=== PATIENT | male | born 1975 | race Caucasian/White ===

== ENCOUNTER → 2020-07-09 | Outpatient (CLI) | payer BC ==
[~2020-07-09] MED LIST: ATORVASTATIN CA40 MG PO; BAYER CHEWABLE81 MG PO; COREG3.125 MG PO; ENTRESTO 49 MG1 EACH PO; FLONASE 0.05% N16 GM; MEDROL DOSEPAK 24 MG PO; NITROSTAT 0.40.4 MG SL; PROTONIX 40 MG40 M1 PO; PROZAC40 MG PO; RANEXA1000 MG PO; ROPINIROLE HCL0.5 MG PO; SKELAXIN TAB 8800 MG PO; TESTOSTERONE; VITAMIN D21250 MCG PO
== END ==
LOC: ECHO 13:24
DX: I10 Essential (primary) hypertension (principal); I25.2 Old myocardial infarction
CPT/HCPCS: ECHO; 71046; 93306

== ENCOUNTER → 2020-07-14 | Outpatient (CLI) | payer BC ==
[2020-07-14 11:53] LABS: HEMOGLOBIN 14.7 gm/dl (14.0-17.5); RED BLOOD COUNT 4.23 M/UL (4.20-5.50); WHITE BLOOD COUNT 9.4 K/UL (4.5-11.0)
[2020-07-14 12:24] LABS: BUN/CREATININE RATIO 17 (0-10)
== END ==
LOC: OPSV2 11:00 → EDSTATUS 11:00 → OPSV2 11:15
PROVIDERS: Orthopaedic Surgery
DX: Z01.812 Encounter for preprocedural laboratory examination (principal); M51.16 Intervertebral disc disorders with radiculopathy, lumbar region; M47.26 Other spondylosis with radiculopathy, lumbar region
CPT/HCPCS: 36415; 80048; 85027; 87081; 87086; 93005

== ENCOUNTER → 2020-07-15 | Outpatient (CLI) | payer BC | LOC: KOH-I 09:22 | DX: M54.16 Radiculopathy, lumbar region (principal); M48.061 Spinal stenosis, lumbar region without neurogenic claudication; M51.36 Other intervertebral disc degeneration, lumbar region | CPT/HCPCS: 72131 ==

== ENCOUNTER → 2020-07-27 | Outpatient (CLI) | payer BC | LOC: LAB 13:25 | DX: M54.16 Radiculopathy, lumbar region (principal); M51.36 Other intervertebral disc degeneration, lumbar region | CPT/HCPCS: 36415; 85610; 85730; 86850; 86900; 86901 ==

== ENCOUNTER 2020-07-28 06:23 | Inpatient (IN) | payer BC ==
[~2020-07-28] VITALS: Ht 188 cm; Wt 104.3 kg
[~2020-07-28 06:23] MED LIST changes: -MEDROL DOSEPAK 24 MG PO
[2020-07-28 15:41] LABS: HEMOGLOBIN 14.3 gm/dl (14.0-17.5); RED BLOOD COUNT 4.16 M/UL (4.20-5.50); WHITE BLOOD COUNT 11.9 K/UL (4.5-11.0)
[2020-07-28 16:02] LABS: BUN/CREATININE RATIO 12 (0-10)
[2020-07-29 03:38] LABS: HEMOGLOBIN 12.9 gm/dl (14.0-17.5); RED BLOOD COUNT 3.79 M/UL (4.20-5.50); WHITE BLOOD COUNT 16.6 K/UL (4.5-11.0)
[2020-07-29 04:14] LABS: BUN/CREATININE RATIO 13 (0-10)
[2020-07-30 09:03] LABS: HEMOGLOBIN 13.3 gm/dl (14.0-17.5); RED BLOOD COUNT 3.93 M/UL (4.20-5.50)
[2020-07-30 09:07] LABS: BUN/CREATININE RATIO 13 (0-10)
[2020-07-30 09:09] LABS: WHITE BLOOD COUNT 11.5 K/UL (4.5-11.0)
--- NOTE | 2020-07-30 11:01 | NUR ---
RN REMOVED HEMOVAC PER ORDER BUT NOTED THAT IT WAS OPEN-ENDED. RN NOTIFIED DR. CINTRON AND NOTIFIED HIM OF FINDING. HE STATED THAT THIS WAS EXPECTED. RN VERBALIZED UNDERSTANDING AND WILL CONTINUE WITH DISCHARGE.
== END 2020-07-30 12:45 | disposition home or self-care (01) | DRG 460 ==
LOC: OR 06:23 → CCU 14:27 → OR 07-29 09:20 → CCU 07-29 09:20 → M/S 07-29 12:33
PROVIDERS: ADMIT Orthopaedic Surgery
PROC: 00NY0ZZ Release Lumbar Spinal Cord, Open Approach (ICD-10-PCS; 2020-07-28)
PROC: 0SG3071 Fusion of Lumbosacral Joint with Autologous Tissue Substitute, Posterior Approach, Posterior Column, Open Approach (ICD-10-PCS; 2020-07-28)
PROC: 01NB0ZZ Release Lumbar Nerve, Open Approach (ICD-10-PCS; 2020-07-28)
PROC: 01NR0ZZ Release Sacral Nerve, Open Approach (ICD-10-PCS; 2020-07-28)
PROC: 4A11X4G Monitoring of Peripheral Nervous Electrical Activity, Intraoperative, External Approach (ICD-10-PCS; 2020-07-28)
PROC: 0SG0071 Fusion of Lumbar Vertebral Joint with Autologous Tissue Substitute, Posterior Approach, Posterior Column, Open Approach (ICD-10-PCS; principal; 2020-07-28 09:15)
DX: M48.061 Spinal stenosis, lumbar region without neurogenic claudication (principal); I50.22 Chronic systolic (congestive) heart failure; M47.26 Other spondylosis with radiculopathy, lumbar region; Z20.822 Contact with and (suspected) exposure to COVID-19; G89.29 Other chronic pain; M54.9 Dorsalgia, unspecified; J45.909 Unspecified asthma, uncomplicated; F32.9 Major depressive disorder, single episode, unspecified; F12.90 Cannabis use, unspecified, uncomplicated; F41.0 Panic disorder [episodic paroxysmal anxiety]; E78.5 Hyperlipidemia, unspecified; K21.9 Gastro-esophageal reflux disease without esophagitis; I25.10 Atherosclerotic heart disease of native coronary artery without angina pectoris; I11.0 Hypertensive heart disease with heart failure; I25.2 Old myocardial infarction; Z98.890 Other specified postprocedural states; Z80.9 Family history of malignant neoplasm, unspecified; Z79.899 Other long term (current) drug therapy; Z87.891 Personal history of nicotine dependence; Z79.82 Long term (current) use of aspirin; Z95.5 Presence of coronary angioplasty implant and graft
CPT/HCPCS: 12002; 36415; 72100; 72110; 73100; 73130; 76000; 80048; 85027; 85610; 85730; 86850; 86900; 86901; 90715; 97110; 97116-GP-CQ; 97162; 97166; 97535; 99283; C1713; C1762; J0690; J1100; J1170; J2001; J2250; J2405; J2704; J2710; J3010; J3370; J7040; J7120

== ENCOUNTER 2020-08-02 20:45 | Emergency (ER) | payer BC ==
[2020-08-02] MEDS ORDERED: MEDROL DOSEPAK 24 MG PO (23:15)
== END 2020-08-02 23:36 | disposition home or self-care (01) ==
LOC: ER1 20:45
DX: S33.5XXA Sprain of ligaments of lumbar spine, initial encounter (principal); I50.9 Heart failure, unspecified; I25.2 Old myocardial infarction; Z95.5 Presence of coronary angioplasty implant and graft
CPT/HCPCS: 72100; 81001; 96372; 99283; J2270

== ENCOUNTER → 2020-10-10 | Outpatient (CLI) | payer BC ==
[~2020-10-10] MED LIST changes: +LIPITOR40 MG PO; +MEDROL DOSEPAK 24 MG PO; +OXYCODONE HCL5 MG PO; +TESTOSTERONE GEL TOP; +TYLENOL EXTRA500 M1 PO
[2020-10-10 13:02] LABS: HEMOGLOBIN 13.9 gm/dl (14.0-17.5); RED BLOOD COUNT 4.12 M/UL (4.20-5.50); WHITE BLOOD COUNT 11.4 K/UL (4.5-11.0)
[2020-10-10 13:38] LABS: BUN/CREATININE RATIO 14 (0-10)
== END ==
LOC: OPSV2 11:00 → EDSTATUS 11:00 → OPSV2 11:22
PROVIDERS: Orthopaedic Surgery
DX: Z01.812 Encounter for preprocedural laboratory examination (principal); T84.418A Breakdown (mechanical) of other internal orthopedic devices, implants and grafts, initial encounter
CPT/HCPCS: 36415; 80048; 81001; 85027; 87086

== ENCOUNTER → 2020-10-22 | Day surgery (SDC) | payer BC ==
[~2020-10-22] VITALS: Ht 188 cm; Wt 103.9 kg
== END | disposition home or self-care (01) ==
LOC: EDSTATUS 10-20 07:30 → OR 10-20 07:30
DX: T84.226A Displacement of internal fixation device of vertebrae, initial encounter (principal); I11.0 Hypertensive heart disease with heart failure; I50.9 Heart failure, unspecified; E78.5 Hyperlipidemia, unspecified; I25.10 Atherosclerotic heart disease of native coronary artery without angina pectoris; I25.2 Old myocardial infarction; J45.909 Unspecified asthma, uncomplicated; G47.30 Sleep apnea, unspecified; K21.9 Gastro-esophageal reflux disease without esophagitis; F41.0 Panic disorder [episodic paroxysmal anxiety]; Z98.1 Arthrodesis status; Z87.891 Personal history of nicotine dependence; Z95.5 Presence of coronary angioplasty implant and graft; Z79.82 Long term (current) use of aspirin; Z79.899 Other long term (current) drug therapy; Z20.822 Contact with and (suspected) exposure to COVID-19
CPT/HCPCS: 36415; 72100; 76000; 86850; 86900; 86901; C1713; C1762; J0690; J1040; J1100; J2001; J2250; J2370; J2704; J2710; J3010; J3370; J7040; J7050; J7120; U0002